=== PATIENT | male | born 1995 | race Caucasian/White ===

== ENCOUNTER 2018-03-28 22:32 | Emergency (ER) | payer SELFPAY ==
[~2018-03-28] VITALS: Ht 175.3 cm; Wt 63.5 kg
[2018-03-28] MEDS ORDERED: NS IV 1000 ML 1,000 ML IV SCH (22:45)
[2018-03-28 22:54] LABS: BASOPHILS % (AUTO) 1 % (0-10); EOSINOPHILS # (AUTO) 0.3 10^3/uL (0.0-0.3); EOSINOPHILS % (AUTO) 5 % (0-10); HEMATOCRIT 45 % (40-54); HEMOGLOBIN 16.4 G/DL (13.3-17.7); LYMPHOCYTES # (AUTO) 2.6 X 10^3 (1.0-4.0); LYMPHOCYTES % (AUTO) 42 % (12-44); MEAN CORPUSCULAR HEMOGLOBIN 31 PG (25-34); MEAN CORPUSCULAR HGB CONC 36 G/DL (32-36); MEAN CORPUSCULAR VOLUME 85 FL (80-99); MEAN PLATELET VOLUME 10.4 FL (7.4-10.4); MONOCYTES # (AUTO) 0.5 X 10^3 (0.0-1.0); MONOCYTES % (AUTO) 8 % (0-12); NEUTROPHILS # (AUTO) 2.7 X 10^3 (1.8-7.8); NEUTROPHILS % (AUTO) 44 % (42-75); PLATELET COUNT 218 10^3/uL (130-400); RED BLOOD COUNT 5.37 10^6/uL (4.35-5.85); RED CELL DISTRIBUTION WIDTH 13.6 % (10.0-14.5); WHITE BLOOD COUNT 6.1 10^3/uL (4.3-11.0)
--- NOTE | 2018-03-28 22:56 | ED Psychosocial ---
General Stated Complaint: OVERDOSE Source: patient, police, EMS (JAKUB ALARCON) History of Present Illness Date Seen by Provider: Mar 28, 2018 Time Seen by Provider: 22:51 Initial Comments Patient was brought to the emergency room for a reported overdose by [facility] and [place] police. The patient is alert and oriented on arrival, he reports taking 16 white Xanax bars this evening and attempted to kill himself prior to arrival. He reports this is the third time he tried to kill himself once with a gun, and an overdose. He also stated on arrival that he had planned to take the Xanax with fentanyl but was unable to obtain the fentanyl. Timing/Duration: just prior to arrival Associated Symptoms: anxiety, ingestion, suicidal ideation (JAKUB ALARCON) Severity: severe (PRATIK PALMER MD) Allergies and Home Medications Allergies Coded Allergies: No Known Drug Allergies (Unverified , 03/28/18) Patient Home Medication List Home Medication List Reviewed: Yes (JAKUB ALARCON) Constitutional: see HPI EENTM: see HPI Respiratory: see HPI Cardiovascular: see HPI Gastrointestinal: see HPI Genitourinary: see HPI Musculoskeletal: see HPI Skin: see HPI Psychiatric/Neurological: See HPI, Anxiety, Depressed, Emotional Problems, Other (suicidal ideation, suicidal attempt) (JAKUB ALARCON) Respiratory: No short of breath, No wheezing Cardiovascular: No chest pain, No palpitations Gastrointestinal: No abdominal pain, No nausea, No vomiting (PRATIK PALMER MD) All Other Systems Reviewed Negative Unless Noted: Yes (JAKUB ALARCON) Past Okeclvk-Edertn-Flkdzv Hx Past Med/Social Hx: Reviewed Nursing Past Med/Soc Hx (JAKUB ALARCON) Past Med/Social Hx: Reviewed Nursing Past Med/Soc Hx (PRATIK PALMER MD) Family Medical History Reviewed Nursing Family Hx (JAKUB ALARCON) Reviewed Nursing Family Hx (PRATIK PALMER MD) Physical Exam Vital Signs Vital Signs - First Documented 03/28/18 22:33 Temp 98.0 Pulse 93 Resp 20 B/P (MAP) 140/99 (113) Pulse Ox 97 O2 Delivery Room Air (PRATIK PALMER MD) Vital Signs Capillary Refill : (JAKUB ALARCON) General Appearance: WD/WN, no apparent distress HEENT: normal ENT inspection, TMs normal Neck: non-tender, full range of motion Respiratory: chest non-tender, lungs clear, normal breath sounds, no respiratory distress, no accessory muscle use Cardiovascular: normal peripheral pulses, tachycardia Gastrointestinal: normal bowel sounds, non tender, soft Extremities: normal range of motion, non-tender Neurologic/Psychiatric: alert, oriented x 3, depressed affect Appearance/Memory: appropriate appearance, appropriate insight, no memory impairment Behavior/Eye Contact: cooperative, good eye contact, normal speech Thoughts/Hallucinations: normal thought pattern, no apparent hallucination, other (suicidal ideation) Skin: normal color, warm/dry Lymphatic: no adenopathy (JAKUB ALARCON STUDENT) Cardiovascular: no murmur, tachycardia Neurologic/Psychiatric: alert, depressed affect Appearance/Memory: disheveled (PRATIK PALMER MD) Progress/Results/Core Measures Results/Orders Lab Results Laboratory Tests Test 03/28/18 22:47 03/28/18 23:40 Range/Units White Blood Count 6.1 4.3-11.0 10^3/uL Red Blood Count 5.37 4.35-5.85 10^6/uL Hemoglobin 16.4 13.3-17.7 G/DL Hematocrit 45 40-54 % Mean Corpuscular Volume 85 80-99 FL Mean Corpuscular Hemoglobin 31 25-34 PG Mean Corpuscular Hemoglobin Concent 36 32-36 G/DL Red Cell Distribution Width 13.6 10.0-14.5 % Platelet Count 218 130-400 10^3/uL Mean Platelet Volume 10.4 7.4-10.4 FL Neutrophils (%) (Auto) 44 42-75 % Lymphocytes (%) (Auto) 42 12-44 % Monocytes (%) (Auto) 8 0-12 % Eosinophils (%) (Auto) 5 0-10 % Basophils (%) (Auto) 1 0-10 % Neutrophils # (Auto) 2.7 1.8-7.8 X 10^3 Lymphocytes # (Auto) 2.6 1.0-4.0 X 10^3 Monocytes # (Auto) 0.5 0.0-1.0 X 10^3 Eosinophils # (Auto) 0.3 0.0-0.3 10^3/uL Basophils # (Auto) 0.0 0.0-0.1 10^3/uL Sodium Level 142 135-145 MMOL/L Potassium Level 4.0 3.6-5.0 MMOL/L Chloride Level 107 98-107 MMOL/L Carbon Dioxide Level 23 21-32 MMOL/L Anion Gap 12 5-14 MMOL/L Blood Urea Nitrogen 10 7-18 MG/DL Creatinine 0.83 0.60-1.30 MG/DL Estimat Glomerular Filtration Rate > 60 BUN/Creatinine Ratio 12 Glucose Level 85 70-105 MG/DL Calcium Level 9.7 8.5-10.1 MG/DL Total Bilirubin 0.5 0.1-1.0 MG/DL Aspartate Amino Transf (AST/SGOT) 21 5-34 U/L Alanine Aminotransferase (ALT/SGPT) 18 0-55 U/L Alkaline Phosphatase 80 40-136 U/L Total Protein 7.8 6.4-8.2 GM/DL Albumin 4.6 H 3.2-4.5 GM/DL Salicylates Level < 5.0 L 5.0-20.0 MG/DL Acetaminophen Level < 10 L 10-30 UG/ML Serum Alcohol < 10 <10 MG/DL Urine Opiates Screen NEGATIVE NEGATIVE Urine Oxycodone Screen NEGATIVE NEGATIVE Urine Methadone Screen NEGATIVE NEGATIVE Urine Propoxyphene Screen NEGATIVE NEGATIVE Urine Barbiturates Screen NEGATIVE NEGATIVE Ur Tricyclic Antidepressants Screen NEGATIVE NEGATIVE Urine Phencyclidine Screen NEGATIVE NEGATIVE Urine Amphetamines Screen NEGATIVE NEGATIVE Urine Methamphetamines Screen NEGATIVE NEGATIVE Urine Benzodiazepines Screen NEGATIVE NEGATIVE Urine Cocaine Screen NEGATIVE NEGATIVE Urine Cannabinoids Screen POSITIVE H NEGATIVE (PRATIK PALMER MD) My Orders Orders - PRATIK PALMER MD Ns Iv 1000 Ml (Sodium Chloride 0.9%) (03/28/18 22:45) (PRATIK PALMER MD) Vital Signs/I&O 03/28/18 22:33 Temp 98.0 Pulse 93 Resp 20 B/P (MAP) 140/99 (113) Pulse Ox 97 O2 Delivery Room Air (PRATIK PALMER MD) Progress Progress Note : Time: 23:01 Progress Note Patient reports that he started to abuse drugs after he had a separation from his child's mother, he reports that he no longer gets to see his child and this has caused him to have the thoughts and actions of harming himself. (JAKUB ALARCON STUDENT) Progress Note : Progress Note I have seen and evaluated the patient with Jakub Alarcon APRN at time of patient's arrival. Patient here with suicidal ideation and admitted overdose on street-bought Xanax bars that he described as white bars. He is unsure of the dosage. Does have history of previous suicide attempts with overdose and/ or a gun. This is related to family dynamic concerns and the loss of his girlfriend and child due to protective order. IV by EMS. Labs, EKG and normal saline 1 L bolus ordered. Poison control contacted by nursing. Monitor patient. 0002: I did discuss the case with Dr. Shin, on-call for hospitalist. She accepts patient for admission, observation status. Patient agrees to plan. (PRATIK PALMER MD) Initial ECG Impression Date: Mar 29, 2018 Initial ECG Impression Time: 23:31 Initial ECG Rate: 74 Initial ECG Rhythm: Normal Sinus Initial ECG Comparisson: No Previous ECG Available Comment Sinus rhythm with normal axis. First-degree AV block. No evidence of ST elevation IA. No previous available for comparison. Interpreted by me. (PRATIK PALMER MD) Departure Communication (Admissions) Time/Spoke to Admitting Phy: 00:02 (PRATIK PALMER MD) Impression Primary Impression: Drug overdose Qualified Codes: T50.902A - Poisoning by unspecified drugs, medicaments and biological substances, intentional self-harm, initial encounter Additional Impression: Suicide by drug overdose Qualified Codes: T50.902A - Poisoning by unspecified drugs, medicaments and biological substances, intentional self-harm, initial encounter Disposition: ADMITTED INPATIENT Condition: Stable Admissions Decision to Admit Reason: Admit from ER (General) Decision to Admit/Date: Mar 29, 2018 Time/Decision to Admit Time: 00:02 (PRATIK PALMER MD) Departure-Patient Inst. Referrals: NO,LOCAL PHYSICIAN (PCP/Family) Primary Care Physician JAKUB ALARCON Mar 28, 2018 22:56 PRATIK PALMER MD Mar 28, 2018 23:20
[2018-03-28 23:11] LABS: ACETAMINOPHEN < 10 UG/ML (10-30); ALANINE AMINOTRANSFERASE 18 U/L (0-55); ALBUMIN 4.6 GM/DL (3.2-4.5); ALKALINE PHOSPHATASE 80 U/L (40-136); BILIRUBIN,TOTAL 0.5 MG/DL (0.1-1.0); BUN/CREATININE RATIO 12; CALCIUM 9.7 MG/DL (8.5-10.1); CARBON DIOXIDE 23 MMOL/L (21-32); CHLORIDE 107 MMOL/L (98-107); CREATININE SERUM 0.83 MG/DL (0.60-1.30); GFR ESTIMATED > 60; GLUCOSE 85 MG/DL (70-105); SALICYLATE < 5.0 MG/DL (5.0-20.0); SODIUM 142 MMOL/L (135-145); TOTAL PROTEIN 7.8 GM/DL (6.4-8.2)
[2018-03-28 23:52] LABS: BILIRUBIN,URINE NEGATIVE (NEGATIVE); CLARITY,URINE CLEAR; COLOR,URINE YELLOW; GLUCOSE, URINE (UA) NEGATIVE (NEGATIVE); KETONES,URINE NEGATIVE (NEGATIVE); LEUKOCYTE ESTERASE ,URINE NEGATIVE (NEGATIVE); NITRITE,URINE NEGATIVE (NEGATIVE); PH,URINE 8 (5-9); PROTEIN,URINE NEGATIVE (NEGATIVE); UROBILINOGEN,URINE NORMAL (NORMAL)
[2018-03-29 00:01] LABS: AMPHETAMINE SCREEN, URINE NEGATIVE (NEGATIVE); BARBITURATE SCREEN URINE NEGATIVE (NEGATIVE); BENZODIAZEPINES SCREEN URINE NEGATIVE (NEGATIVE); CANNABINOID SCREEN, URINE POSITIVE (NEGATIVE); COCAINE SCREEN URINE NEGATIVE (NEGATIVE); METHADONE STAT NEGATIVE (NEGATIVE); METHAMPHETAMINE SCREEN URINE S NEGATIVE (NEGATIVE); OPIATE SCREEN URINE NEGATIVE (NEGATIVE); OXYCODONE STAT NEGATIVE (NEGATIVE); PROPOXYPHENE STAT NEGATIVE (NEGATIVE); TRICYCLIC ANTIDEPRESSANTS SCRE NEGATIVE (NEGATIVE)
[2018-03-29 00:06] LABS: BACTERIA,URINE NEGATIVE /HPF; SQUAMOUS EPITHELIAL CELL,UR RARE /HPF
[2018-03-29 01:41] VITALS: BP 140/99
== END 2018-03-29 01:46 ==
LOC: EDUNIT# 22:32 → ER 22:33 → ICU 03-29 00:05 → UNDOADMOB 03-29 00:05 → UNDODISOB 03-29 01:45
DX: T42.4X2A Poisoning by benzodiazepines, intentional self-harm, initial encounter (principal); F41.9 Anxiety disorder, unspecified; F32.9 Major depressive disorder, single episode, unspecified
CPT/HCPCS: 36415; 80053; 80306; 80320; 80329; 81000; 85025; 93005; 93041; 96360